=== PATIENT | female | born 1980 ===

== ENCOUNTER 2023-05-16 15:30 | Inpatient (IN) | payer OTHER, SELFPAY ==
[2023-05-16 16:21] VITALS: BP 132/73; PULSE 99; RESP 18; TEMP 36.9; O2SAT 97
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
[2023-05-16] MEDS: risperiDONE 1 MG TABLET PO (21:42)
[2023-05-16] MEDS: Lithium Carbonate 300 MG CAPSULE PO (21:42)
[2023-05-16] MEDS: cloNIDine HCL 0.1 MG TABLET PO (21:43)
[2023-05-16] MEDS: diazePAM 5 MG TABLET PO (21:43)
[2023-05-16 21:47] VITALS: BP 132/81; PULSE 109; RESP 18; TEMP 36.4; O2SAT 97
[2023-05-16 23:22] VITALS: BMI 32.0
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
[2023-05-17 08:30] VITALS: BP 115/73; PULSE 86; RESP 18; TEMP 36.9; O2SAT 98
[2023-05-17] MEDS: risperiDONE 1 MG TABLET PO (08:30)
[2023-05-17] MEDS: lisinopriL 10 MG TABLET PO (08:30)
[2023-05-17 09:27] LABS: Estimated Average Glucose 103 mg/dL; Hemoglobin A1c % 5.2 % (<6.0)
[2023-05-17 09:32] LABS: Cholesterol 149 mg/dL (<200); HDL Cholesterol 55 mg/dL (>40); LDL Cholesterol Calculated 79 mg/dL (<100); Magnesium 1.9 mg/dL (1.6-2.6); Triglycerides 75 mg/dL (<150)
[2023-05-17 09:49] LABS: Thyroid Stimulating Hormone 4.04 uIU/mL (0.32-4.0)
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
[2023-05-17 10:57] LABS: Folate 5.4 ng/mL (> or = 4.0); Vitamin B12 374 pg/mL (200-900)
[2023-05-17] MEDS: risperiDONE 2 MG TABLET PO (21:46)
[2023-05-17] MEDS: Lithium Carbonate 300 MG CAPSULE PO (21:46)
[2023-05-18] MEDS: lisinopriL 10 MG TABLET PO (09:30)
[2023-05-18] MEDS: risperiDONE 1 MG TABLET PO (09:30)
[2023-05-18 09:31] VITALS: BP 127/59; PULSE 83; RESP 18; TEMP 36.8; O2SAT 98
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
[2023-05-18] MEDS: hydrOXYzine HCL 25 MG TABLET PO (16:36)
[2023-05-18] MEDS: cloNIDine HCL 0.1 MG TABLET PO (16:37)
[2023-05-18 18:00] VITALS: BP 106/55; PULSE 115; TEMP 36.2
[2023-05-18] MEDS: Lithium Carbonate 300 MG CAPSULE PO (19:44)
[2023-05-18] MEDS: risperiDONE 2 MG TABLET PO (19:44)
[2023-05-19] MEDS: risperiDONE 1 MG TABLET PO (08:54)
[2023-05-19] MEDS: lisinopriL 10 MG TABLET PO (08:54)
[2023-05-19 08:57] VITALS: BP 116/63; PULSE 105; RESP 18; TEMP 36.4; O2SAT 98
[2023-05-19] MEDS: hydrOXYzine HCL 25 MG TABLET PO ×2 (11:00→17:09)
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
[2023-05-19 14:21] VITALS: BP 121/56; PULSE 110
[2023-05-19] MEDS: cloNIDine HCL 0.1 MG TABLET PO ×2 (14:22→17:09)
[2023-05-19 16:05] VITALS: BP 113/64; PULSE 98; RESP 16; TEMP 36.7; O2SAT 99
[2023-05-19] MEDS: Nicotine 7 MG PATCH.TD24 TRANSDERMA (16:14)
[2023-05-19] MEDS: Nicotine Polacrilex 2 MG GUM BUCCAL (16:14)
[2023-05-19 19:31] VITALS: BP 107/78; PULSE 111; RESP 18; TEMP 36.7; O2SAT 99
[2023-05-19] MEDS: risperiDONE 2 MG TABLET PO (20:04)
[2023-05-19] MEDS: diazePAM 2 MG TABLET PO (20:04)
[2023-05-19] MEDS: Lithium Carbonate 300 MG CAPSULE PO (20:04)
[2023-05-20 08:30] VITALS: BP 139/79; PULSE 113; RESP 16; TEMP 36.4; O2SAT 99
[2023-05-20] MEDS: lisinopriL 10 MG TABLET PO (08:39)
[2023-05-20] MEDS: risperiDONE 1 MG TABLET PO (08:39)
[2023-05-20] MEDS: diazePAM 2 MG TABLET PO ×2 (08:43→13:01)
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
[2023-05-20] MEDS: diazePAM 5 MG TABLET PO ×2 (13:56→20:22)
[2023-05-20] MEDS: cloNIDine HCL 0.1 MG TABLET PO (18:08)
[2023-05-20] MEDS: hydrOXYzine HCL 25 MG TABLET PO (18:08)
[2023-05-20] MEDS: Acetaminophen 325 MG TABLET 650 MG PO (19:30)
[2023-05-20 19:40] VITALS: BP 130/91; PULSE 111; RESP 18; TEMP 36.8; O2SAT 99
[2023-05-20] MEDS: risperiDONE 2 MG TABLET PO (20:22)
[2023-05-20] MEDS: Lithium Carbonate 300 MG CAPSULE PO (20:23)
[2023-05-21] MEDS: hydrOXYzine HCL 25 MG TABLET PO ×2 (04:21→17:09)
[2023-05-21 08:00] VITALS: BP 141/68; PULSE 91; RESP 18; TEMP 36.3; O2SAT 100
[2023-05-21] MEDS: diazePAM 5 MG TABLET PO ×3 (08:16→20:40)
[2023-05-21] MEDS: lisinopriL 10 MG TABLET PO (08:16)
[2023-05-21] MEDS: risperiDONE 1 MG TABLET PO (08:16)
[2023-05-21 08:56] LABS: Lithium 0.28 mmol/L (0.60-1.20)
[2023-05-21 09:07] LABS: Anion Gap 12 (12-20); Carbon Dioxide 27 mmol/L (22-29); Chloride 105 mmol/L (96-108); Potassium 4.5 mmol/L (3.3-5.1); Sodium 139 mmol/L (135-145)
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
[2023-05-21 09:33] LABS: TSH reflex Free T4 3.81 uIU/mL (0.32-4.0)
[2023-05-21 10:17] VITALS: BP 110/56; PULSE 117
[2023-05-21] MEDS: cloNIDine HCL 0.1 MG TABLET PO ×2 (10:20→17:09)
[2023-05-21 16:28] VITALS: BP 118/57; PULSE 93; RESP 16; TEMP 36.4; O2SAT 100
[2023-05-21] MEDS: risperiDONE 2 MG TABLET PO (20:40)
[2023-05-21] MEDS: Lithium Carbonate 300 MG CAPSULE PO (20:40)
[2023-05-22] MEDS: traZODone HCL 50 MG TABLET PO (02:35)
[2023-05-22] MEDS: hydrOXYzine HCL 25 MG TABLET PO ×2 (02:35→11:01)
[2023-05-22] MEDS: cloNIDine HCL 0.1 MG TABLET PO (05:49)
[2023-05-22] MEDS: diazePAM 5 MG TABLET PO (08:23)
[2023-05-22] MEDS: risperiDONE 1 MG TABLET PO (08:23)
[2023-05-22] MEDS: lisinopriL 10 MG TABLET PO (08:23)
[2023-05-22 08:25] VITALS: BP 104/61; PULSE 81; RESP 18; TEMP 36.7; O2SAT 100
[2023-05-22] MEDS: Naloxone HCl Nasal TAKE HOME 4 MG SPRAY 8 MG NOSTRILALT (09:55)
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
== END 2023-05-22 11:15 | disposition home or self-care (01) | DRG 750 ==
PROVIDERS: Admitting Provider Clinical Nurse Specialist Psychiatric/Mental Health, Adult; PCP Nurse Practitioner Family; Visit Provider Psychiatry & Neurology Psychiatry
DX: F25.0 Schizoaffective disorder, bipolar type (principal); F14.10 Cocaine abuse, uncomplicated; M17.0 Bilateral primary osteoarthritis of knee; I10 Essential (primary) hypertension; F17.210 Nicotine dependence, cigarettes, uncomplicated; Z71.6 Tobacco abuse counseling; F43.10 Post-traumatic stress disorder, unspecified; Z79.899 Other long term (current) drug therapy
CPT/HCPCS: 36415; 80051; 80061; 80178; 82607; 82746; 83036; 83735; 84439; 84443

== ENCOUNTER → 2023-05-16 15:30 | Outpatient (BNV) | payer OTHER, SELFPAY | PROVIDERS: Admitting Provider Clinical Nurse Specialist Psychiatric/Mental Health, Adult; PCP Nurse Practitioner Family; Visit Provider Psychiatry & Neurology Psychiatry | DX: F25.0 Schizoaffective disorder, bipolar type (principal); F14.10 Cocaine abuse, uncomplicated; F43.11 Post-traumatic stress disorder, acute | CPT/HCPCS: 99231; 99232 ==

== ENCOUNTER → 2023-05-16 15:30 | Outpatient (BNV) | payer MEDICAID, SELFPAY | PROVIDERS: Admitting Provider Clinical Nurse Specialist Psychiatric/Mental Health, Adult; PCP Nurse Practitioner Family; Visit Provider Student in an Organized Health Care Education/Training Program | DX: Z00.8 Encounter for other general examination (principal) | CPT/HCPCS: 99222 ==

== ENCOUNTER 2023-05-29 12:46 | Outpatient (REF) | payer OTHER, SELFPAY | END 2023-05-29 12:47 | disposition home or self-care (01) | LOC: HO.HOSX 12:46 | PROVIDERS: Visit Provider Physician Assistant | DX: Z13.89 Encounter for screening for other disorder (principal) ==